=== PATIENT | female | born 1995 | race Caucasian/White ===

== ENCOUNTER 2017-10-28 01:05 | Observation (INO) | payer OTHER ==
[~2017-10-28] VITALS: Ht 149.9 cm; Wt 59.0 kg
[2017-10-28 01:10] VITALS: BP 132/72
--- NOTE | 2017-10-28 01:17 | NUR ---
pt ambulated to er bed 12
--- NOTE | 2017-10-28 01:18 | NUR ---
PATIENT PRESENTS TO ED WITH ABDOMINAL PAIN AND VOMITING X3 HOURS. PATIENT STATES SHE WAS DRIVING BEFORE THE PAIN STARTED AND ATE POSOLE. PT STATES N/V/D; SKIN IS PINK/WARM/DRY; AAOX4 WITH EVEN AND STEADY GAIT; LUNGS CLEAR BL; HR EVEN AND REGULAR; PT DENIES ANY FEVER, CP, SOB, OR COUGH AT THIS TIME; PATIENT STATES PAIN OF 10/10 AT THIS TIME; VSS; PATIENT POSITIONED FOR COMFORT; HOB ELEVATED; BEDRAILS UP X1; BED DOWN. ER MD MADE AWARE OF PT STATUS.
[2017-10-28] MEDS ORDERED: NACL 0.9% 1,000 ML IV ONE (01:32)
[2017-10-28] MEDS ORDERED: KETOROLAC 30 MG/ML VIAL IVP ONE (01:35)
[2017-10-28] MEDS ORDERED: ONDANSETRON 4 MG/2 ML VIAL IVP ONE ×2 (01:35→03:35)
[2017-10-28 01:54] LABS: BASOPHILS % (AUTO) 0.1 % (0.0-2.0); EOSINOPHILS # (AUTO) 0.1 K/uL (0-0.4); EOSINOPHILS % (AUTO) 0.8 % (0.0-4.0); HEMATOCRIT 39.8 % (36-48); HEMOGLOBIN 13.1 g/dL (12.0-16.0); LYMPHOCYTES # (AUTO) 1.5 K/uL (2.5-16.5); LYMPHOCYTES % (AUTO) 12.7 % (20.5-51.1); MEAN CORPUSCULAR HEMOGLOBIN 29 pg (27-31); MEAN CORPUSCULAR HGB CONC 33 g/dL (33-37); MEAN CORPUSCULAR VOLUME 86.4 fL (80-94); MONOCYTES # (AUTO) 0.6 K/uL (0.8-1.0); MONOCYTES % (AUTO) 4.9 % (1.7-9.3); NEUTROPHILS # (AUTO) 9.3 K/uL (1.8-7.7); PLATELET COUNT (AUTO) 173 K/uL (140-450); RED BLOOD CELL COUNT(AUTO) 4.61 MIL/uL (4.20-5.40); RED CELL DISTRIBUTION WIDTH 14.2 % (11.6-13.7); WHITE BLOOD COUNT (AUTO) 11.4 K/uL (4.8-10.8)
[2017-10-28 02:04] LABS: NEUTROPHILS % (AUTO) 81.5 % (42.2-75.2)
[2017-10-28 02:06] LABS: ANION GAP 2.6 (8-16); CARBON DIOXIDE 26.8 mmol/L (21-32); CREATININE 0.9 mg/dL (0.6-1.3); POTASSIUM 3.4 mmol/L (3.5-5.1)
--- NOTE | 2017-10-28 02:07 | NUR ---
PATIENT TO CT
[2017-10-28 02:12] LABS: ALBUMIN 4.4 g/dL (3.4-5.0); TOTAL BILIRUBIN 0.5 mg/dL (0.0-1.0)
--- NOTE | 2017-10-28 02:58 | NUR ---
Patient appears to be resting comfortably in bed. Vital Signs within normal limits. Respirations even and unlabored.
[2017-10-28] MEDS ORDERED: ACETAMINOPHEN 325 MG TAB PO ONE (03:35)
[2017-10-28] MEDS ORDERED: POTASSIUM CHLORIDE 10 MEQ TABER PO ONE ×2 (03:35→05:48)
[2017-10-28] MEDS ORDERED: MORPHINE SULFATE 4 MG/ML SYR IVP ONE (03:35)
[2017-10-28] MEDS ORDERED: DEXT 5% / NACL 0.9% 500 ML IV ONE (03:35)
--- NOTE | 2017-10-28 04:15 | NUR ---
ADMITTED PT FROM ER VIA WHEELCHAIR. NO C/O PAIN AT THIS TIME. NO RESP DISTRESS NOTED. IV TO LEFT AC #20G WITH 700 ML NS. PT ON ROOM AIR. ORIENTED PT TO ROOM. DISCUSSED PLAN OF CARE, PT VERBALIZED UNDERSTANDING. CALL LIGHT WITHIN REACH.
--- NOTE | 2017-10-28 04:19 | NUR ---
Pt report given to ANDREI WHELAN. Transfer of care at this time.
[2017-10-28 04:20] VITALS: BP 96/59
[2017-10-28] MEDS ORDERED: DEXT 5% /NACL 0.9% 1,000 ML IV SCH (05:20)
[2017-10-28] MEDS ORDERED: ONDANSETRON 4 MG/2 ML VIAL IVP PRN (05:20)
[2017-10-28] MEDS ORDERED: MORPHINE SULFATE 4 MG/ML SYR IVP PRN (05:20)
[2017-10-28] MEDS ORDERED: ACETAMINOPHEN 325 MG TAB PO PRN (05:20)
--- NOTE | 2017-10-28 05:57 | NUR ---
STARTED D5NS AT 75 ML/HR. NO C/O PAIN OR NAUSEA/VOMITING.
[2017-10-28] MEDS ORDERED: PIPER/TAZO 3.375GM/D5W PREMIX 50 ML IV SCH (06:00)
[2017-10-28] MEDS ORDERED: PIPERACILLIN/TAZOBACTAM 3.375 GM in DEXTROSE 5% 50 ML IV ONE (06:00)
[2017-10-28] MEDS ORDERED: PIPERACILLIN/TAZOBACTAM 3.375 GM VIAL IV ONE (06:09)
--- NOTE | 2017-10-28 06:29 | NUR ---
STARTED ZOSYN 3.375 GM AT 100 ML/HR AT 0629 AM. PT TOLERATING WELL. NO C/O PAIN. NO DISTRESS NOTED.
--- NOTE | 2017-10-28 07:10 | NUR ---
ZOSYN STILL INFUSING. NO ADVERSE REACTION NOTED. ENDORSED PT TO DAY SHIFT NURSE. PT IN STABLE CONDITION.
--- NOTE | 2017-10-28 07:21 | NUR ---
ENDORSED PT TO DAY SHIFT NURSE. PT IN STABLE CONDITION.
--- NOTE | 2017-10-28 07:25 | NUR ---
RECEIVED REPORT FROM RIVET CATCHER NURSE, PT IS RESTING IN BED, SEMI FOWLERS POSITION, PT IS AAOX4, AMBULATORY, PT HAS IV ON HER LEFT AC, PATENT, INTACT, FLUSHING WELL, SKIN IS INTACT, NO S/S OF RESPIRATORY DISTRESS OR DISCOMFORT NOTED, DISCUSSED PLAN OF CARE WITH PT, PT VERBALIZED UNDERSTANDING, CALL LIGHT IS WITHIN REACH, WILL CONTINUE TO MONITOR.
--- NOTE | 2017-10-28 07:45 | NUR ---
RECEIVED PT FROM INDUSTRIAL BOILERMAKER NURSE, NO SIGNS OF ACUTE DISTRESS.
[2017-10-28 08:00] VITALS: BP 94/48
--- NOTE | 2017-10-28 09:50 | NUR ---
DR MOLINA ORDERED A SMALL BOWEL SERIES AND TOLD TO FOLLOW UP WITH RESULT. MAY D/C TODAY IF NOTING ABNORMAL IS SEEN.
--- NOTE | 2017-10-28 10:56 | NUR ---
PATIENT TAKEN OFF UNIT AND TAKEN TO RADIOLOGY. PT LEFT IN STABLE CONDITION.
--- NOTE | 2017-10-28 11:30 | NUR ---
PT RETURNED TO UNIT VIA WHEELCHAIR, PT STABLE AT THIS TIME. 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
--- NOTE | 2017-10-28 12:50 | NUR ---
OFFERED TYLENOL PT REFUSED.
--- NOTE | 2017-10-28 14:00 | NUR ---
GAVE TYLENOL FOR PAIN, PAIN REDUCED TO TOLERABLE LEVEL. WILL START DC PAPERWORK.
[2017-10-28 15:51] VITALS: BP 94/48
--- NOTE | 2017-10-28 16:17 | NUR ---
DC ORDER IN PLACE WILL EDUCATE PRN. PT GOING HOME WITH
--- NOTE | 2017-10-28 17:00 | NUR ---
DISCHARGE INSTRUCTIONS WERE GIVEN, IV REMOVED, CATHETER TIP INTACT, ID WRIST BAND REMOVED. PT STABLE UPON DISCHARGE ACCOMPANIED BY HER .
== END 2017-10-28 17:00 | disposition home or self-care (01) ==
LOC: MED 01:05 → MMU 03:33
PROVIDERS: ADMIT Internal Medicine; ATTEND Internal Medicine
DX: R10.30 Lower abdominal pain, unspecified (principal); R11.2 Nausea with vomiting, unspecified
CPT/HCPCS: 36415; 74176; 74250; 80053; 85025; 87040; 87081; 96361; 96365; 96375; 99285; G0378; J1885; J2270; J2405; J2543; J7030; J7042; J7060

== ENCOUNTER 2018-01-02 17:33 | Emergency (ER) | payer OTHER ==
[~2018-01-02] VITALS: Ht 149.9 cm; Wt 60.3 kg
[2018-01-02 17:43] VITALS: BP 119/78
--- NOTE | 2018-01-02 19:40 | NUR ---
PATIENT LEFT WITHOUT BEING SEEN BY ER MD. NO FURTHER CARE PROVIDED FOR PATIENT.
== END 2018-01-02 19:40 | disposition left against medical advice (07) ==
LOC: MED 17:33
DX: S80.862A Insect bite (nonvenomous), left lower leg, initial encounter (principal); S80.861A Insect bite (nonvenomous), right lower leg, initial encounter; Z53.21 Procedure and treatment not carried out due to patient leaving prior to being seen by health care provider

== ENCOUNTER 2018-08-09 11:48 | Emergency (ER) | payer SELFPAY ==
[~2018-08-09] VITALS: Ht 149.9 cm; Wt 60.8 kg
[2018-08-09 12:10] VITALS: BP 108/64
--- NOTE | 2018-08-09 12:10 | NUR ---
PATIENT AMBULATED TO ER BED 6.
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
[2018-08-09] MEDS ORDERED: ACETAMINOPHEN 325 MG TAB PO ONE (14:10)
[2018-08-09 14:30] VITALS: BP 110/70
== END 2018-08-09 14:30 | disposition home or self-care (01) ==
LOC: MED 11:48
DX: S09.90XA Unspecified injury of head, initial encounter (principal); R55 Syncope and collapse; F07.81 Postconcussional syndrome; W22.8XXA Striking against or struck by other objects, initial encounter; Y93.89 Activity, other specified; Y92.89 Other specified places as the place of occurrence of the external cause; Y99.8 Other external cause status
CPT/HCPCS: 70450; 81025; 99284